=== PATIENT | male | born 1990 | race Caucasian/White ===

== ENCOUNTER 2017-12-02 10:59 | Inpatient (IN) ==
[2017-12-02] MEDS ORDERED: Ringers Solution, Lactated 1,000 ML ONE (14:07)
[2017-12-02] MEDS ORDERED: Norepinephrine 4 MG in D5% in Water 250 ML IVC SCH (14:15)
[2017-12-02] MEDS ORDERED: Dexmedetomidine HCl 400 MCG/100 ML MLS IVC SCH (14:15)
[2017-12-02 14:18] LABS: ABG Base Excess 1 mEq/L (-2 to 3); ABG HCO3 27 mEq/L (21-27); ABG Oxygen Saturation 99 % (95-98); ABG PCO2 51 mmHg (35-45); ABG PH 7.33 pH Units (7.32-7.45); ABG PO2 170 mmHg (85-104); ABG TCO2 28 mEq/L (20-26); Blood Gas Modality ASSIST CONTROL; Blood Gas PEEP 5 cm H2O; Blood Gas Respiration Rate 18; Blood Gas VT 460 cc
[2017-12-02] MEDS ORDERED: Lacri-Lube 3.5 GM TUBE BOTH EYES PRN (14:20)
--- NOTE | 2017-12-02 14:25 | Procedure Note ---
<Dorian Willis - Last Filed: 12/02/17 14:22> Date of procedure: 12/02/17 Pre-op diagnosis: Septic shock Post-op diagnosis: same Procedure: Left CVC IJ placement. The patient was positioned in the correct position. He was cleaned and draped in the normal fashion. Under ultrasound guidance a needle was utilized to identify the patient's left IJ vein. Guidewire was passed without difficulty and under ultrasound was visualized within the internal jugular on the left. The skin was nicked. Dilator was used. Catheter was passed without difficulty over the guidewire and guidewire was removed. Catheter was sutured in place without difficulty. Dressing placed. Chest x-ray confirms placement. Anesthesia: IV sedation Was there an speech correction assistant present: Yes Bread Molder: Donell Flores Estimated blood loss (cc): 2 Specimen: None Pathology: none sent Condition: critical Disposition: ICU <Donell Flores - Last Filed: 12/02/17 17:00> - Attending Attestation I examined this patient and my medical decision-making was reviewed with the Resident Physician. I agree with the documented findings, disposition and treatment plan as described except to the extent set forth below. We independently had [id number] contact with the patient I was present and supervised the resident with this procedure which was performed skillfully
--- NOTE | 2017-12-02 14:31 | Pulmonology History & Physical ---
<Dorian Willis - Last Filed: 12/02/17 15:00> Date of Encounter: 12/02/17 Time of Encounter: 14:29 Assessment and Plan (1) Septic shock Current visit: Yes Status: Acute Patient is is in septic shock which is likely associated with a multifocal pneumonia. The patient was found unresponsive and we are unsure of exactly what happened during this incident. The patient was subsequently intubated due to his lack of response. Chest x-ray shows multifocal pneumonia both initially and on repeat. [facility] Labs were drawn and demonstrated a lactic acid of 6.9. Repeat labs here in the ICU including lactic acid which will be treated every 4 hours. Labs we trended every 6 hours. We will obtain a echocardiogram with concern for possible endocarditis given the patient's past history of IVDU as well as bilateral lower extremity purpura and discolorations of the feet. In addition an MIRI as well as venous Doppler imaging will also be obtained. Peripheral blood smear is also obtained to determine if there any signs of TTP or microangiopathic hemolytic anemia. The patient will have CT scans of his head, cervical, thoracic, lumbar spines as well as CT of the chest, abdomen and pelvis, and bilateral lower extremities. Given the patient's unresponsiveness and toxic appearance we are unsure of any previous trauma or other possible injuries so we will perform imaging to determine if there is any other etiology of the patient's symptoms. (2) Respiratory failure Current visit: Yes Status: Acute The patient was subsequently intubated and is currently sedated. Qualifiers: Chronicity: acute Respiratory failure complication: unspecified whether with hypoxia or hypercapnia Qualified Code(s): J96.00 - Acute respiratory failure, unspecified whether with hypoxia or hypercapnia (3) Multifocal pneumonia Current visit: No Status: Acute The patient is currently on Zosyn and vancomycin. We will obtain a sputum culture, respiratory panel, blood cultures. We will likely de-escalate once we begin to determine any specific bacteria. (4) Lactic acidosis Current visit: Yes Status: Acute We will continue to trend the patient's lactic acid every 4 hours until normalization. (5) Thrombocytopenia Current visit: Yes Status: Acute We will continue to trend the patient's platelets. This is likely reactive but there may be findings consistent with TTP as well as microangiopathic hemolytic anemia. We will continue to monitor the patient's lab work and findings. (6) Purpura Current visit: Yes Status: Acute (7) Elevated troponin Current visit: Yes Status: Acute This is likely reactive due to demand ischemia associated with infection and septic shock. In addition we were obtaining an echocardiogram to determine if there are any signs of endocarditis. History of Present Illness Chief complaint: Altered mental status, septic shock, multifocal pneumonia HPI: Mr. Rose is a 27 year old male that has no previous medical history other than hepatitis C. The patient was found unresponsive and was last known well roughly 3 days ago. The patient has an extensive history of IVDU. The patient was brought in to [place] emergency department for being unresponsive by some friends. Upon arrival to the emergency department he was in acute distress and very toxic-appearing. At that time due to his inability to maintain his airway he was subsequently intubated. The patient was noted to have a lactic acid of 6.9, leukocytosis of 34. He was administered 4 L of IV normal saline. The patient is noted to have an elevated troponin as well. The patient's bilateral feet are purpura and purple in color. He is reduced pulses in the left foot on the dorsalis pedis. The patient was subsequently transported to [facility] ICU for further care and workup. Past Med Surg Social Fam HX - Past Medical History Medical history: no medical history Psychiatric history: no psych history - Social History Smoking Status: Unknown if ever smoked Drug use: IV Drug Use Current living situation: Home Medications and Allergies No Known Home Drugs 12/02/17 [History] 3 Allergy/AdvReac Type Severity Reaction Status Date / Time No Known Allergies Allergy Verified 12/02/17 09:23 ROS unobtainable: due to endotracheal tube All Systems: A 10-system review of systems was performed and is negative for pertinent findings except as documented above in the HPI. Physical Examination Vital Signs: Vital Signs, Last 4 Hours Temp Pulse Resp BP Pulse Ox 12/02/17 14:08 100 12/02/17 13:30 105 26 111/65 100 12/02/17 13:12 96.8 F L 110 22 131/77 100 General appearance: other (Patient is currently intubated and sedated) Eyes: icteric ENT: oropharynx moist, other (Patient has mild oropharyngeal trauma likely associated with insertion of ET tube and bite block.) Neck: supple, no JVD Effort: other (Patient is on ventilator) Auscultation: bilateral: diminished breath sounds, rhonchi Cardiovascular: other (Tachycardic and regular rhythm) Gastrointestinal: soft, non-distended Integumentary: other (By lateral lower extremities from ankles distally are covered and purpura and are purple in color. Mild mottling noted as well.) Extremities: no edema, other (Patient has right DP and PT pulses that are within normal limits, left DP pulse is less than right area large amount of purpura and discoloration of bilateral lower extremities.) other (Patient is intubated and sedated.) Results - Laboratory Findings CBC and BMP: 12/02/17 14:22 ABG ABG pH 7.33 pH Units (7.32-7.45) D 12/02/17 14:11 ABG pCO2 51 mmHg (35-45) H 12/02/17 14:11 ABG pO2 170 mmHg (85-104) H D 12/02/17 14:11 ABG O2 Saturation 99 % (95-98) H 12/02/17 14:11 Abnormal lab findings: Abnormal lab results ABG pCO2 51 mmHg (35-45) H 12/02/17 14:11 ABG pO2 170 mmHg (85-104) H D 12/02/17 14:11 ABG Total CO2 28 mEq/L (20-26) H 12/02/17 14:11 ABG O2 Saturation 99 % (95-98) H 12/02/17 14:11 POC Glucose 168 (58-89) H 12/02/17 14:00 - Attending Attestation I examined this patient and my medical decision-making was reviewed with the Resident Physician. I agree with the documented findings, disposition and treatment plan as described except to the extent set forth below. Sepsis Reassessment Note - Evaluation Sepsis Screen: Sepsis Risk Current Stage of Sepsis: septic shock Possible Source of Sepsis: pulmonary - Focused Exam Date of Encounter: 12/02/17 Time of Encounter: 15:10 Vital Signs: Vital Signs Temp Pulse Resp BP Pulse Ox 12/02/17 14:08 100 12/02/17 13:30 105 26 111/65 100 12/02/17 13:12 96.8 F L 110 22 131/77 100 Respiratory Exam: Present: rhonchi, diminished air movement Cardiovascular Exam: Present: tachycardia, S1, S2 Capillary Refill: < 2 seconds Peripheral Pulse Strength: 2+ slightly diminished Peripheral Pulse Location: Radial Skin Exam: mottling <Donell Flores W - Last Filed: 12/02/17 16:59> Date of Encounter: 12/02/17 History of Present Illness HPI: Mr. Rose is a 27 year old male All Systems: A 10-system review of systems was performed and is negative for pertinent findings except as documented above in the HPI. Physical Examination Vital Signs: Vital Signs, Last 4 Hours Temp Pulse Resp BP Pulse Ox 12/02/17 16:15 97.6 F 102 32 77/47 94 12/02/17 15:30 105 38 110/67 93 12/02/17 15:15 32 123/70 94 12/02/17 14:30 105 31 123/70 100 12/02/17 14:10 28 119/65 98 12/02/17 14:08 100 12/02/17 13:30 105 26 111/65 100 12/02/17 13:12 96.8 F L 110 22 131/77 100 Results - Laboratory Findings CBC and BMP: 12/02/17 14:22 12/02/17 14:22 ABG ABG pH 7.33 pH Units (7.32-7.45) D 12/02/17 14:11 ABG pCO2 51 mmHg (35-45) H 12/02/17 14:11 ABG pO2 170 mmHg (85-104) H D 12/02/17 14:11 ABG O2 Saturation 99 % (95-98) H 12/02/17 14:11 PT/INR, D-dimer PT 18.5 Seconds (9.4-12.1) H 12/02/17 14:22 Abnormal lab findings: Abnormal lab results WBC 29.9 K/mcL (4.3-11.1) H 12/02/17 14:22 RBC 2.95 M/mcL (4.19-5.50) L 12/02/17 14:22 Hgb 7.8 g/dL (12.9-16.9) L 12/02/17 14:22 Hct 22.0 % (37.5-50.1) L 12/02/17 14:22 MCV 74.6 fL (83.0-100.0) L 12/02/17 14:22 MCH 26.4 pg (28.0-33.3) L 12/02/17 14:22 RDW 15.9 % (11.5-14.5) H 12/02/17 14:22 Plt Count 23 K/mcL (140-400) L* 12/02/17 14:22 Band Neutrophils % 26.0 % (0-4) H 12/02/17 14:22 Neutrophils # 28.4 K/mcL (1.6-8.9) H 12/02/17 14:22 Toxic Granulation Present (Not Present) A 12/02/17 14:22 Toxic Vacuolation Present (Not Present) A 12/02/17 14:22 Dohle Bodies Present (Not Present) A 12/02/17 14:22 Platelet Estimate Marked Decrease (Normal) L 12/02/17 14:22 Polychromasia 1+ (Not Present) A 12/02/17 14: PT 18.5 Seconds (9.4-12.1) H 12/02/17 14:22 Fibrinogen 159 mg/dL (169-393) L 12/02/17 14:22 ABG pCO2 51 mmHg (35-45) H 12/02/17 14:11 ABG pO2 170 mmHg (85-104) H D 12/02/17 14:11 ABG Total CO2 28 mEq/L (20-26) H 12/02/17 14:11 ABG O2 Saturation 99 % (95-98) H 12/02/17 14:11 Sodium 126 mEq/L (136-145) L 12/02/17 14:22 Potassium 3.1 mEq/L (3.5-5.1) L 12/02/17 14:22 Chloride 92 mEq/L (98-107) L 12/02/17 14:22 BUN 69 mg/dL (6-20) H 12/02/17 14:22 BUN/Creatinine Ratio 57 (6-26) H 12/02/17 14:22 Glucose 159 mg/dL (70-105) H 12/02/17 14:22 POC Glucose 155 (58-89) H 12/02/17 16:25 Calcium 6.3 mg/dL (8.6-10.3) L 12/02/17 14:22 Total Bilirubin 4.7 mg/dL (0.3-1.0) H 12/02/17 14:22 Alkaline Phosphatase 140 Units/L (34-104) H 12/02/17 14:22 Lactate Dehydrogenase 326 Units/L (140-271) H 12/02/17 14:22 Troponin I 0.51 ng/mL (< 0.04) H* 12/02/17 14:22 Serum Total Protein 4.7 g/dL (6.4-8.9) L 12/02/17 14:22 Albumin 1.7 g/dL (3.5-5.7) L 12/02/17 14:22 Albumin/Globulin Ratio 0.6 (1.1-2.2) L 12/02/17 14:22 - Attending Attestation I examined this patient and my medical decision-making was reviewed with the Resident Physician. I agree with the documented findings, disposition and treatment plan as described except to the extent set forth below. We independently had [id number] contact with the patient I spent 40 min of Critical Care time with this patient. It involved decision making of high complexity to assess, manipulate, and support vital organ system failure and/or to prevent further life threatening deterioration of the patient' s condition. The time involved in the performance of separately reportable procedures was not counted toward critical care time. Patient seen and examined at bedside Labs, radiology, chart personally reviewed. 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: Acute encephalopathy likely related to sepsis Pulm: Acute hypoxic respiratory failure secondary to pneumonia with suspect bacteremia with pulmonary seeding low tidal volume ventilatory strategy employed ABG within acceptable gas exchange Cards: Sepsis was vasodilatory shock status post volume resuscitation starting vasopressor central line placed trend lactate; troponin elevation which likely demand ischemia echocardiogram pending can also assess for valvular vegetations FEN-GI: Nothing by mouth for now GI prophylaxis given Renal: AK I likely secondary to prerenal azotemia versus sepsis urine output monitored trend serum creatinine and electrolytes ID: History of IVDU concern for bacteremia including but not limited to MRSA and even possible endocarditis. Empiric antimicrobials have been started cultures have been obtained infectious disease consultation pending Heme/Onc: DVT prophylaxis per routine patient has no thrombocytopenia possibly related to DIC checking fibrinogen less likely but also r severe sepsis or possibly MAHA peripheral smear pending. NEw Anemia without evidence of overtbleeding Lower extremity purpuric changes possibly related to infectious process although MAHA also in differential dermatology consult for biopsy Endo: Glucose Monitored Integ/MSK: Skin Care per routine ICU Nursing Protocol to prevent ulcers. Lines: All lines examined without evidence of infection : Dispo: ICU CODE: Full code I have updated to the mother at bedside Sepsis Reassessment Note - Focused Exam Vital Signs: Vital Signs Temp Pulse Resp BP Pulse Ox 12/02/17 16:15 97.6 F 102 32 77/47 94 12/02/17 15:30 105 38 110/67 93 12/02/17 15:15 32 123/70 94 12/02/17 14:30 105 31 123/70 100 12/02/17 14:10 28 119/65 98 12/02/17 14:08 100 12/02/17 13:30 105 26 111/65 100 12/02/17 13:12 96.8 F L 110 22 131/77 100
[2017-12-02 14:42] LABS: Red Cell Distribution Width 15.9 % (11.5-14.5)
[2017-12-02 14:43] LABS: Hemoglobin 7.8 g/dL (12.9-16.9); Mean Corpuscular HGB Conc 35.5 g/dL (31.6-35.5); Mean Corpuscular Hemoglobin 26.4 pg (28.0-33.3); Mean Corpuscular Volume 74.6 fL (83.0-100.0); Red Blood Count 2.95 M/mcL (4.19-5.50)
[2017-12-02 14:50] LABS: Platelet Count 23 K/mcL (140-400)
[2017-12-02] MEDS: FentaNYL (PF) 1,000 MCG in 0.9 % Sodium Chloride 80 ML IVC SCH ×2 (14:53→19:07)
[2017-12-02 15:02] LABS: Alanine Aminotransferase 29 Units/L (7-52); Albumin 1.7 g/dL (3.5-5.7); Albumin/Globulin Ratio 0.6 (1.1-2.2); Alkaline Phosphatase 140 Units/L (34-104); Aspartate Amino Transferase 31 Units/L (13-39); BUN/Creatinine Ratio 57 (6-26); Bilirubin,Total 4.7 mg/dL (0.3-1.0); Blood Urea Nitrogen 69 mg/dL (6-20); Calcium 6.3 mg/dL (8.6-10.3); Carbon Dioxide 26 mEq/L (23-29); Chloride 92 mEq/L (98-107); Glucose 159 mg/dL (70-105); Osmolality,Calculated 285 (280-300); Potassium 3.1 mEq/L (3.5-5.1); Sodium 126 mEq/L (136-145); Total Protein 4.7 g/dL (6.4-8.9); eGFR For African Americans > 60 (> 60); eGFR For Non-African Americans > 60 (> 60)
[2017-12-02] MEDS ORDERED: Potassium Chloride 40 MEQ/200 ML BAG IVPB PRN (15:14)
[2017-12-02 15:15] LABS: INR 1.7; Lymphocytes # 1.5 K/mcL (0.6-4.6); Neutrophils # 28.4 K/mcL (1.6-8.9); Platelet Estimate Marked Decrease (Normal); Prothrombin Time 18.5 Seconds (9.4-12.1)
[2017-12-02 15:16] LABS: Dohle Bodies Present (Not Present); Toxic Granulation Present (Not Present); Toxic Vacuolation Present (Not Present)
[2017-12-02 15:18] LABS: Polychromasia 1+ (Not Present)
[2017-12-02 15:48] LABS: Creatine Kinase 106 Units/L (30-223); Lactate Dehydrogenase 326 Units/L (140-271)
[2017-12-02 15:53] LABS: Adenovirus Not Detected (Not Detect); Bordetella Pertussis Not Detected (Not Detect); Chlamydophila pneumoniae Not Detected (Not Detect); Coronavirus 229E Not Detected (Not Detect); Coronavirus HKU1 Not Detected (Not Detect); Coronavirus NL63 Not Detected (Not Detect); Coronavirus OC43 Not Detected (Not Detect); Human Metapneumovirus Not Detected (Not Detect); Human Rhinovirus/Enterovirus Not Detected (Not Detect); Influenza A Subtype 2009 H1 Not Detected (Not Detect); Influenza A Untypeable Not Detected (Not Detect); Influenza B Not Detected (Not Detect); Mycoplasma pneumoniae Not Detected (Not Detect); Parainfluenza Virus 1 Not Detected (Not Detect); Parainfluenza Virus 2 Not Detected (Not Detect); Parainfluenza Virus 3 Not Detected (Not Detect); Parainfluenza Virus 4 Not Detected (Not Detect); Respiratory Syncytial Virus Not Detected (Not Detect)
[2017-12-02] MEDS ORDERED: Lacri-Lube 3.5 GM TUBE BOTH EYES SCH (16:00)
[2017-12-02] MEDS ORDERED: Ipratropium/Albuterol Neb 3 ML IH SCH (16:00)
--- NOTE | 2017-12-02 17:02 | Event Note ---
Date of Encounter: 12/02/17 Time of Encounter: 17:00 Discussed findings of echocardiogram with the second floor operator patient has preserved ejection fraction but notable valvular vegetations on both the aortic and tricuspid valve notably on the aortic valve there appears to be involvement of the aortic annulus and possible abscess there is no evidence of aortic regurgitation or stenosis tricuspid valve apparatus is significantly thickened with large mobile echogenic echodensity. Patient has high probability of decompensation requiring immediate cardiothoracic surgical intervention and I recommend transfer to tertiary referral center for ongoing treatment and evaluation discussed plan with the patient's next of kin and in agreement for transfer we are making arrangements at this time
--- NOTE | 2017-12-02 17:25 | Dermatology Consult Note ---
Date of Encounter: 12/02/17 Time of Encounter: 16:10 History of Present Illness Reason for Consult: purpura History of Present Illness: 27 y/o wm w/ hx of hep c found unresponsive today and in septic shock w/ pneumonia and extensive endocarditis pt w/ extensive purpura on dorsal feet x 1 -2 days Review of Systems ROS unobtainable: due to endotracheal tube Hematologic: . Skin: Patient denies new or changing moles, or rash other than what is mentioned above. Past Med Surg Social Fam HX - Past Medical History Medical history: no medical history Psychiatric history: no psych history - Social History Smoking Status: Unknown if ever smoked Smokeless Tobacco Status: No Alcohol use: occasionally Drug use: IV Drug Use Medications and Allergies No Known Home Drugs 12/02/17 [History] 3 Allergy/AdvReac Type Severity Reaction Status Date / Time No Known Allergies Allergy Verified 12/02/17 09:23 Examination Vital Signs: Temp Pulse Resp BP Pulse Ox 97.6 F 102 32 77/47 94 12/02/17 16:15 12/02/17 16:15 12/02/17 16:15 12/02/17 16:15 12/02/17 16:15 General Examination: pt intubated and unresponsive dorsal feet and lower legs w/ ill defined purpura and evidence of early necrosis. no reticulated pattern seen - Assessment and Plan (1) Purpura Current Visit: Yes Status: Acute r/o early leukocytoclastic vasculitis vs embolic phenomenon vs purpura fulminans from septic shock. 4 mm punch biopsy performed today and will be sent to [facility] to be read stat. CAll [phone] for results. supportive care in the meantime Procedure: Dermatology Date of procedure: 12/02/17 Procedure: Punch biopsy(s) of the lesion noted above right leg to establish and confirm diagnosis. Time out called. Patient identified, procedure verified, site(s) identified and verified. Patient and staff present in agreement. Area(s) prepped with alcohol and anesthetized with 1.0% lidocaine with epinephrine at 1: 100,000 concentration. 1*ml of lidocaine with epinephrine were injected Biopsy(s) of lesion performed. Lesion(s) closed with 4'0 prolene* suture and bandaging applied. Specimen(s) sent to pathology. Patient instructed in routine post-op care. 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
--- NOTE | 2017-12-02 17:28 | Event Note ---
Date of Encounter: 12/02/17 Time of Encounter: 17:33 Patient will be transported to [facility]. Accepted by [facility] to bed 5102. We will arrange transfer in mobile ICU.
[2017-12-02] MEDS ORDERED: Famotidine 20 MG/2 ML VIAL IVP SCH (18:00)
[2017-12-02 18:17] VITALS: BP 91/54
[2017-12-02] MEDS ORDERED: *HR* Rocuronium Bromide 50 MG/5 ML VIAL IVC ONE (19:13)
[2017-12-02] MEDS ORDERED: *HR* Midazolam HCl 5 MG/5 ML VIAL IVP ONE (19:13)
[2017-12-02] MEDS ORDERED: Vancomycin 1,000 MG in D5% in Water 250 ML IVPB SCH (20:00)
[2017-12-02] MEDS ORDERED: Chlorhexidine Rinse 15 ML MOUTHWASH MM SCH (21:00)
== END 2017-12-02 19:14 | disposition critical access hospital (66) | DRG 871 ==
LOC: ICNU 13:47
PROVIDERS: ADMIT Internal Medicine Hospice and Palliative Medicine; ATTEND Internal Medicine Hospice and Palliative Medicine